=== PATIENT | male | born 1960 | race Caucasian/White ===

== ENCOUNTER → 2024-04-09 08:14 | Outpatient (REF) | payer MEDICARE, BC, SELFPAY | LOC: HWRCS 08:14 | PROVIDERS: ATTENDING PHYSICIAN Internal Medicine Interventional Cardiology; FAMILY PHYSICIAN Family Medicine | DX: I10 Essential (primary) hypertension (principal); R07.89 Other chest pain | CPT/HCPCS: 93306 ==